=== PATIENT | male | born 1970 | race Caucasian/White ===

== ENCOUNTER 2020-07-15 17:46 | Observation (INO) | payer OTHER ==
[~2020-07-15 17:46] MED LIST: Iopamidol-370 76% 500 ML 1 ML ONE
[2020-07-15] MEDS ORDERED: Morphine 4 MG/ML VIAL ONE (18:00)
[2020-07-15] MEDS ORDERED: Ketorolac Tromethamine 30 MG/ML VIAL ONE (18:00)
[2020-07-15 18:12] LABS: #Basophils 0.1 thou/uL (0.0-0.2); #Eosinphils 0.2 thou/uL (0.0-0.7); #Lymphocytes 1.7 thou/uL (1.20-3.40); #Monocytes 1.1 thou/uL (0.11-0.59); #Neutrophils 10.3 thou/uL (1.40-6.50); %Basophils 0.5 % (0.0-1.0); %Eosinophils 1.7 % (0.0-10.0); %Lymphocytes 12.5 % (21.0-51.0); %Monocytes 8.3 % (0.0-10.0); %Neutrophils 77.1 % (42.0-75.0); Hemoglobin 15.1 g/dL (14.0-18.0); Mean Corpuscular HGB CONC 32.2 g/dL (32.0-36.0); Mean Corpuscular Hemoglobin 25.9 pg (27.0-31.0); Mean Corpuscular Volume 80.5 fL (78.0-98.0); Mean Platelet Volume 8.5 fL (7.4-10.4); Platelet Count 298 thou/uL (130-400); RBC Distribution Width 14.6 % (11.5-14.5); Red Blood Cell (RBC) Count 5.85 mill/uL (4.70-6.10); White Blood Cell (WBC) Count 13.3 thou/uL (4.8-10.8)
--- NOTE | 2020-07-15 18:43 | CT ---
CT ABDOMEN WITH CONTRAST CT PELVIS WITH CONTRAST: DATE: 07/15/2020 HISTORY: 50-year-old male with right upper quadrant and right lower quadrant abdominal pain with nausea and vo miting. COMPARISON: None TECHNIQUE: IV injection of iodinated contrast media: administered. Oral contrast media:Not administered FINDINGS: In the central portion of the abdominal cavity, anterior to the abdominal aorta and inferior to the t hird stage of the duodenum, there is a region of fat stranding. There are scattered slightly prominent nearby retroperitoneal and mesenteric lymph nodes. The fat stranding slightly involves the region of the uncinate process and head of the pancreas. Appendix: Normal Gallbladder: No excessive distention, mural thickening, or pericholecystic edema. Liver: 2 cm cyst left lobe hepatic segment IVb. Rest of liver is normal. Abdominal aorta, kidneys, adrenals, spleen, and urinary bladder, are normal. There is a broad platelike region of fat stranding along the anterior inferior portion of the periton eal cavity, which is located between the anterior surface of the urinary bladder and the posterior aspect of the rectus abdominis musculature, right greater than left, extending into the right inguina l canal. Uncertain whether this represents edema or postsurgical scar tissue (if the patient has had surgery in this location). Large intestine: Descending and sigmoid colonic diverticulosis without diverticulitis. Small bowel: No dilation. No ascites or pneumoperitoneum. IMPRESSION: 1) fat stranding consistent with edema in the central abdomen at retroperitoneal/mesenteric junction. Origin of this edema is uncertain, but possibilities include acute pancreatitis (recommend correlation with serum lipase and amylase), mesenteric panniculitis, and trauma. 2) a different type of broad band of fat stranding in the lower portion of the peritoneal cavity. Pos sibilities include edema of unknown origin versus postsurgical scar tissue versus posttraumatic hemorrhage. 3) normal appendix. No evidence of acute cholecystitis.
[2020-07-15 18:47] LABS: Bilirubin Negative (Negative); Blood, Urine Negative (Negative); Clarity Clear (Clear); Glucose, Urine (Dipstick) Normal (Negative); Ketone, Urine Negative (Negative); Leukocyte Negative Leu/uL (Negative); Nitrite Negative (Negative); Protein, Urine (Dipstick) Negative (Neg-Trace); Specific Gravity, Urine 1.016 (1.002-1.036); Urobilinogen Normal mg/dL (Less than 2)
[2020-07-15 18:57] LABS: ALT (SGPT) 52 U/L (8-55); AST (SGOT) 32 U/L (5-34); Albumin 4.2 g/dL (3.5-5.0); Alkaline Phosphatase 96 U/L (40-110); Anion Gap 16 mmol/L (10-20); BUN (Urea Nitrogen) 13 mg/dL (8.4-25.7); Bilirubin, Total 0.7 mg/dL (0.2-1.2); Calc. Creatinine Clearance 0 mL/min (70-130); Calcium 9.1 mg/dL (7.8-10.44); Carbon Dioxide 25 mmol/L (22-29); Chloride 97 mmol/L (98-107); Estimated GFR-MDRD 65; Globulin 2.4 g/dL (2.4-3.5); Glucose 98 mg/dL (70-105); Lipase 168 U/L (8-78); Potassium 3.9 mmol/L (3.5-5.1); Protein, Total 6.6 g/dL (6.0-8.3); Sodium 134 mmol/L (136-145)
--- NOTE | 2020-07-15 20:15 | ULT ---
ULTRASOUND ABDOMEN LIMITED: (RIGHT UPPER QUADRANT) DATE: 07/15/2020 HISTORY: 50-year-old male with abdominal pain FINDINGS: Gallbladder: Normal wall thickness. No gallstones or sludge identified. No pericholecystic fluid. Liver: Normal parenchymal echogenicity. 2 cm septated cyst in left lobe. Right kidney: No hydronephrosis. Pancreas: Nonspecific sonographic appearance (ultrasound is relatively insensitive for the detection of pancreatic pathology compared to CT and MRI.). Common duct caliber: 4 mm. IMPRESSION: 1) hepatic cyst 2) otherwise negative
[2020-07-15 20:49] LABS: Cardiac Risk 5.8 (Less than 4.5)
[2020-07-15] MEDS ORDERED: Ondansetron ODT 4 MG TAB SL PRN (21:33)
[2020-07-15] MEDS ORDERED: Ondansetron PF 4 MG/2 ML Vial IVP PRN (21:33)
[2020-07-15] MEDS ORDERED: Morphine 2 MG/ML VIAL SLOW IVP PRN ×2 (21:33→23:26)
[2020-07-15 21:55] VITALS: BMI 31.8
[2020-07-15] MEDS: Lactated Ringer's 1,000 ML IV SCH (22:28)
[2020-07-15] MEDS ORDERED: Morphine 4 MG/ML VIAL SLOW IVP PRN (22:33)
[2020-07-15] MEDS ORDERED: Labetalol HCl 100 MG/20 ML VIAL SLOW IVP PRN (23:07)
--- NOTE | 2020-07-15 23:09 | PDOC.FPRHP ---
- History of Present Illness Chief Complaint: abdominal pain History of Present Illness: 50 y/o M with PMHx diverticulitis, HTN, low testosterone, allergen induced asthma presents for abdominal pain, onset 1 day prior to admission. Initially described as epigastric but since coming to the ED it has mainly been RUQ pain. The pain does not radiate anywhere. Symptoms were not relieved with Tums. He is traveling to see his daughter and tried to "tough out" his symptoms, but they eventually became unbearable which brought him to the ED. Endorses some nausea and vomiting. Reports clear emesis, denies any hematemesis. He is complaining of decreased appetite. Has not been eating anything over the past 24 hours, but has been able to keep fluids down. He has not had a BM in the last 24 hours. Usually has 1-2 per day. He does not feel constipated, attributes symptoms to not eating as much. Reports that when symptoms began, he was eating steak for dinner. He also drank 4 beers. He reports that he usually only drinks 1-2 times per month now, and is usually around 4 beers when he does drink. He does endorse a history of heavy drinking of vodka, which he quit 1-2 months ago. Home medications include lisinopril-HCTZ, albuterol, and weekly testosterone injections. ED Course: 1L NS, toradol, morphine. Lipase elevated at 168 - Allergies/Adverse Reactions Allergies Allergy/AdvReac Type Severity Reaction Status Date / Time amoxicillin Allergy Verified 07/15/20 21:53 Penicillins Allergy Verified 07/15/20 21:53 - Home Medications Medication Instructions Recorded Confirmed Type Lisinopril/Hydrochlorothiazide 1 tab PO DAILY 07/16/20 07/16/20 History [Prinizide] Testosterone Cypionate 200 mg IM Q7D 07/16/20 07/16/20 History - History PMHx: diverticulitis, low testosterone, HTN, asthma PSHx: hernia surgery x 2 including umbilical hernia repair FHx: unknown Social: + etoh use, denies drug or alcohol use - Review of Systems General: denies: fever/chills, fatigue Respiratory: denies: cough, congestion, shortness of breath Cardiovascular: denies: chest pain, edema Gastrointestinal: reports: nausea, vomiting, constipation, abdominal pain. denies: diarrhea, GI bleeding Genitourinary: denies: dysuria Skin: reports: other (sunburn) Neurological: denies: syncope, weakness - Vital signs BP: 155/88 HR: 90 RR: 18 Tmax: 98.0F Pox: 97% on RA Wt: 97.7 kg - Physical Exam Constitutional: NAD, awake, alert and oriented, well developed HEENT: normocephalic and atraumatic, EOMI, conjunctiva clear, no scleral icterus , grossly normal vision, grossly normal hearing Neck: supple Heart: RRR, normal S1/S2, no murmurs/rubs/gallops, pulses present, no edema Lungs: CTAB, no respiratory distress, good air movement, no rales/rhonchi, no wheezing Abdomen: soft -Abdomen: moderate tenderness to RUQ, mild central abdominal tenderness just superior to umbilicus, no rebound tenderness, hypoactive bowel sounds Musculoskeletal: ROM grossly normal Neurological: no focal deficit Skin: other (sunburn to head, back, upper chest) Heme/Lymphatic: no unusual bruising or bleeding Psychiatric: normal mood and affect, good judgment and insight, intact recent and remote memory FMR H&P: Results - Labs Result Diagrams: 07/16/20 05:26 07/16/20 05:26 Lab results: WBC 13.3 thou/uL (4.8-10.8) H 07/15/20 18:04 Hgb 15.1 g/dL (14.0-18.0) 07/15/20 18:04 Hct 47.1 % (42.0-52.0) 07/15/20 18:04 MCV 80.5 fL (78.0-98.0) 07/15/20 18:04 Plt Count 298 thou/uL (130-400) 07/15/20 18:04 Neutrophils % 77.1 % (42.0-75.0) H 07/15/20 18:04 Sodium 134 mmol/L (136-145) L 07/15/20 18:04 Potassium 3.9 mmol/L (3.5-5.1) 07/15/20 18:04 Chloride 97 mmol/L (98-107) L 07/15/20 18:04 Carbon Dioxide 25 mmol/L (22-29) 07/15/20 18:04 BUN 13 mg/dL (8.4-25.7) 07/15/20 18:04 Creatinine 1.17 mg/dL (0.7-1.3) 07/15/20 18:04 Glucose 98 mg/dL (70-105) 07/15/20 18:04 Lactic Acid 1.3 mmol/L (0.5-2.2) 07/15/20 20:16 Calcium 9.1 mg/dL (7.8-10.44) 07/15/20 18:04 Total Bilirubin 0.7 mg/dL (0.2-1.2) 07/15/20 18:04 AST 32 U/L (5-34) 07/15/20 18:04 ALT 52 U/L (8-55) 07/15/20 18:04 Alkaline Phosphatase 96 U/L (40-110) 07/15/20 18:04 Serum Total Protein 6.6 g/dL (6.0-8.3) 07/15/20 18:04 Albumin 4.2 g/dL (3.5-5.0) 07/15/20 18:04 Lipase 168 U/L (8-78) H 07/15/20 18:04 Urine Ketones Negative mg/dL (Negative) 07/15/20 18:24 Urine Blood Negative (Negative) 07/15/20 18:24 Urine Nitrite Negative (Negative) 07/15/20 18:24 Ur Leukocyte Esterase Negative Dinorah/uL (Negative) 07/15/20 18:24 - EKG Interpretation EKG: NSR, borderline QTc FMR H&P: A/P - Plan Acute pancreatitis Symptoms due to early pancreatitis vs mesenteric panniculitis vs other pathology. Epigastric and RUQ pain not classic for pancreatitis, lipase elevated at 168 but is not 3x upper limit, CT abd/pelvis with fat stranding suggestive of pancreatitis, although could be due to mesenteric panniculitis or trauma. Known risk factors for pancreatitis include ETOH use, thiazide diuretic use. Separate, additional non-specific stranding in lower abdomen. Monitor for clinical symptoms in lower abdomen. - will treat as pancreatitis with NPO and IVF, pain control with morphine and toradol - continue to monitor clinical symptoms as mesenteric panniculitis can lead to SBO - will hold lisinopril-HCTZ at this time - f/u lipid panel - RUQ US without GB pathology, revealing 2 cm septated cyst on L liver lobe - consider hepatitis panel - monitor LFTs on CMP, leukocytosis on CBC HTN Controlled. - will hold lisinopril-HCTZ due to thiazide as possible precipitating factor for pancreatitis. - continue to monitor - PRN labetalol for SBP >180 Hypogonadism aware on weekly testosterone injections outpatient Asthma aware - albuterol prn FMR H&P: Upper Level - Pertinent history 50 yo M with HTN here for acute pancreatitis. N/V and abd pain started yesterday after eating steak and drinking beer. Describes in RUQ area, sharp with no radiation. First time episode. Has former hx of alcohol abuse. Used to drink vodka 3x week but quit 3 weeks ago. Yesterday had 4 beers for labor day. Denies hx of RUQ postprandial pain or IV drug use. Still has GB and appendix. Takes HCTZ for HTN. - Plan Date/Time: 07/15/20 1087 I, [Jocelynn Olsen], have evaluated this patient and agree with findings/plan as outlined by planner internship resident. Pertinent changes/additions are listed here. #Acute pancreatitis -Elevated serum lipase at 168. Not 3x ULN but could have caught it in early process of rising -CT abdomen showing fat stranding involving head of pancreas & uncinate region. Also showing fat stranding in mesenteric junction, consider mesenteric panniculitis. Consider further evaluation of latter diagnosis if not clinically improved in AM -FLP, RUQ U/S -Consider HCTZ as possible cause. Hold for now. -NPO, LR at 175cc/hr -Pain control with morphine 4mg, 2mg for breakthrough -BISAP: 0. --> <1% predicted mortality #Hx of EtOH abuse -ASE protocol -[employer] on cessation Admit: Medical/Inpt IVF: LR @ 175cc/hr Abx: None Diet: NPO GI ppx: IV protonix Discussed w/ Dr. Pettit See planner internship note for rest of details Addendum - Attending - Attending Attestation Date/Time: 07/15/20 8878 I personally evaluated the patient and discussed the management with Dr. Pena and Dr. Olsen I agree with the History, Examination, Assessment and Plan documented above with any addition or exceptions noted below. 50 yo male presents for evaluation of abdominal pain. CT concerning for pancreatitis vs messenteric panniculitis. Lipase elevated but not considerably. Will repeat in AM to see if increasing. NPO. Treat pain. Would repeat imaging to follow up on lymph nodes and if panniculitis progressing to sclerosis. Mike
[2020-07-15] MEDS ORDERED: Pantoprazole 40 MG VIAL IVP SCH (23:45)
[2020-07-16] MEDS ORDERED: Ketorolac Tromethamine 30 MG/ML VIAL IVP SCH (00:45)
[2020-07-16] MEDS: Morphine 4 MG/ML VIAL SLOW IVP PRN ×3 (04:33→22:02)
[2020-07-16] MEDS: Lactated Ringer's 1,000 ML IV SCH (04:33)
[2020-07-16] MEDS: Ketorolac Tromethamine 30 MG/ML VIAL IVP SCH ×3 (05:26→17:51)
[2020-07-16 05:46] LABS: #Eosinphils 0.4 thou/uL (0.0-0.7); #Lymphocytes 1.4 thou/uL (1.20-3.40); #Monocytes 1.4 thou/uL (0.11-0.59); %Basophils 0.1 % (0.0-1.0); %Eosinophils 3.2 % (0.0-10.0); %Lymphocytes 11.4 % (21.0-51.0); %Monocytes 11.4 % (0.0-10.0); %Neutrophils 73.9 % (42.0-75.0); Hemoglobin 14.8 g/dL (14.0-18.0); Mean Corpuscular HGB CONC 32.8 g/dL (32.0-36.0); Mean Corpuscular Hemoglobin 26.7 pg (27.0-31.0); Mean Corpuscular Volume 81.3 fL (78.0-98.0); Mean Platelet Volume 8.8 fL (7.4-10.4); Platelet Count 271 thou/uL (130-400); RBC Distribution Width 14.7 % (11.5-14.5); Red Blood Cell (RBC) Count 5.56 mill/uL (4.70-6.10); White Blood Cell (WBC) Count 12.2 thou/uL (4.8-10.8)
[2020-07-16 06:06] LABS: ALT (SGPT) 44 U/L (8-55); AST (SGOT) 27 U/L (5-34); Albumin 3.9 g/dL (3.5-5.0); Alkaline Phosphatase 85 U/L (40-110); Anion Gap 13 mmol/L (10-20); BUN (Urea Nitrogen) 12 mg/dL (8.4-25.7); Bilirubin, Total 0.9 mg/dL (0.2-1.2); Calc. Creatinine Clearance 91 mL/min (70-130); Carbon Dioxide 25 mmol/L (22-29); Chloride 101 mmol/L (98-107); Estimated GFR-MDRD 57; Globulin 2.7 g/dL (2.4-3.5); Glucose 114 mg/dL (70-105); Potassium 4.3 mmol/L (3.5-5.1); Protein, Total 6.6 g/dL (6.0-8.3); Sodium 135 mmol/L (136-145)
--- NOTE | 2020-07-16 07:25 | PDOC.FM ---
- Subjective Subjective: No acute events overnight. Continues to deal with intermittent RUQ abdominal pain improved with pain rx. No n/v, however, remains NPO at this time. Again confirmed that he has cut back considerably on his alcohol intake over last several weeks. - Objective Vital Signs & Weight: Vital Signs (12 hours) Temp Pulse Resp BP BP Pulse Ox 07/16/20 07:13 98.2 F 102 H 20 130/86 95 07/16/20 05:20 98.2 F 112 H 18 136/88 97 07/16/20 00:00 97.7 F 114 H 18 159/80 H 97 07/15/20 21:30 98 F 90 18 155/88 H 155/88 H 97 Weight Weight 97.778 kg I&O: 07/15/20 07/16/20 07/17/20 06:59 06:59 06:59 Intake Total 3450 Output Total 200 Balance 3250 Result Diagrams: 07/16/20 05:26 07/16/20 05:26 Phys Exam - Physical Examination Constitutional: NAD HEENT: moist MMs No respiratory distress Cardiovascular: RRR Gastrointestinal: soft, no distention, positive bowel sounds very minimal RUQ and mid epigastric tenderness with deep palpation Musculoskeletal: no edema, pulses present Neurological: moves all 4 limbs Psychiatric: normal affect, A&O x 3 Dx/Plan - Plan Plan: Acute pancreatitis -Elevated serum lipase at 168, could have caught while rising, will trend and compare to clinical presentation -CT abdomen showing fat stranding involving head of pancreas & uncinate region - Also showing fat stranding in mesenteric junction, consider mesenteric panniculitis - Will treat as pancreatitis for now, if not improving will address mesenteric panniculitis, likely would need steroids -RUQ U/S - septated left liver lobe cyst -Consider HCTZ as possible cause of pancreatitis, however unlikely. Hold for now. -NPO, LR at 175cc/hr -Pain control with morphine 6mg, 2mg for breakthrough -BISAP: 0 = <1% predicted mortality Hx of EtOH abuse -ASE protocol -[employer] on cessation Admit: Medical/Inpt IVF: LR @ 175cc/hr Abx: None Diet: NPO GI ppx: IV protonix Plan: Will treat as pancreatitis and watch clinical course. If no improvement will need to consider likelihood of mesenteric panniculitis. Addendum - Attending - Attending Attestation Date/Time: 07/16/20 1420 I personally evaluated the patient and discussed the management with Dr. Hayes. I agree with the History, Examination, Assessment and Plan documented above with any addition or exceptions noted below.
[2020-07-16] MEDS: Pantoprazole 40 MG VIAL IVP SCH (08:41)
[2020-07-16] MEDS: Lisinopril 10 MG TAB PO SCH (08:41)
[2020-07-16 13:04] LABS: SARS-CoV-2 MS2 Positive; SARS-CoV-2 N Gene Negative; SARS-CoV-2 S Gene Negative; SARS-CoV-2 by NAA Not Detected (NotDetected); SARS-CoV-2 orf1ab Negative
[2020-07-17] MEDS: Ketorolac Tromethamine 30 MG/ML VIAL IVP SCH ×5 (00:19→20:17)
[2020-07-17] MEDS: Morphine 4 MG/ML VIAL SLOW IVP PRN (04:02)
--- NOTE | 2020-07-17 07:11 | PDOC.FM ---
- Subjective Subjective: Pt feeling better this morning. Seen in the room ambulating talking to via phone. States he was trying to avoid morphine overnight due to side affects he doesn't prefer but needed it overnight due to an instance of increased pain. Feels his pain is better this morning. Denies any N/V/D. Has not had BM in a few days. - Objective Vital Signs & Weight: Vital Signs (12 hours) Temp Pulse Resp BP BP Pulse Ox 07/17/20 07:07 98.1 F 81 18 135/82 93 L 07/16/20 21:11 98.1 F 116 H 17 129/84 95 07/16/20 19:31 117/75 Weight Weight 97.778 kg I&O: 07/16/20 07/17/20 07/18/20 06:59 06:59 06:59 Intake Total 3450 Output Total 200 Balance 3250 Result Diagrams: 07/17/20 08:50 07/17/20 08:50 Phys Exam - Physical Examination Constitutional: NAD HEENT: moist MMs, sclera anicteric Respiratory: no wheezing, no rales, no rhonchi, clear to auscultation bilateral Cardiovascular: RRR, no significant murmur Gastrointestinal: soft, no distention, positive bowel sounds Minimal RUQ tenderness Musculoskeletal: no edema, pulses present Neurological: moves all 4 limbs Psychiatric: normal affect, A&O x 3 Skin: cap refill <2 seconds Dx/Plan - Plan Plan: Acute pancreatitis - improving - Pain improved this morning - Will adjust pain regimen to reduce use of morphine - Lipase down trending - Will initiate clear diet and AAT Hx of EtOH abuse -ASE protocol -no signs of withdrawal Admit: Medical/Inpt IVF: LR @ 70 Diet: CL GI ppx: IV protonix Plan: Improving on treatment for pancreatitis. Will continue to adjust pain regimen. Will start diet and monitor response. Possible DC later today. Addendum - Attending - Attending Attestation Date/Time: 07/17/20 1640 I personally evaluated the patient and discussed the management with Dr. Hayes. I agree with the History, Examination, Assessment and Plan documented above with any addition or exceptions noted below. Possible d/c this evening vs tomorrow.
[2020-07-17] MEDS: Pantoprazole 40 MG VIAL IVP SCH (09:01)
[2020-07-17] MEDS: Lisinopril 10 MG TAB PO SCH ×2 (09:01→12:28)
[2020-07-17 09:16] LABS: #Basophils 0.1 thou/uL (0.0-0.2); #Eosinphils 0.4 thou/uL (0.0-0.7); #Lymphocytes 1.7 thou/uL (1.20-3.40); #Monocytes 1.3 thou/uL (0.11-0.59); %Basophils 0.6 % (0.0-1.0); %Eosinophils 3.2 % (0.0-10.0); %Lymphocytes 13.4 % (21.0-51.0); %Monocytes 10.6 % (0.0-10.0); %Neutrophils 72.2 % (42.0-75.0); Hemoglobin 14.5 g/dL (14.0-18.0); Mean Corpuscular HGB CONC 32.7 g/dL (32.0-36.0); Mean Corpuscular Hemoglobin 26.7 pg (27.0-31.0); Mean Corpuscular Volume 81.7 fL (78.0-98.0); Mean Platelet Volume 8.9 fL (7.4-10.4); Platelet Count 287 thou/uL (130-400); RBC Distribution Width 15.1 % (11.5-14.5); Red Blood Cell (RBC) Count 5.41 mill/uL (4.70-6.10); White Blood Cell (WBC) Count 12.5 thou/uL (4.8-10.8)
[2020-07-17 09:27] LABS: ALT (SGPT) 35 U/L (8-55); AST (SGOT) 22 U/L (5-34); Alkaline Phosphatase 78 U/L (40-110); Anion Gap 14 mmol/L (10-20); BUN (Urea Nitrogen) 25 mg/dL (8.4-25.7); Bilirubin, Total 1.3 mg/dL (0.2-1.2); Calc. Creatinine Clearance 88 mL/min (70-130); Calcium 9.6 mg/dL (7.8-10.44); Carbon Dioxide 25 mmol/L (22-29); Chloride 102 mmol/L (98-107); Estimated GFR-MDRD 55; Globulin 3.1 g/dL (2.4-3.5); Glucose 103 mg/dL (70-105); Lipase 44 U/L (8-78); Protein, Total 7.1 g/dL (6.0-8.3); Sodium 137 mmol/L (136-145)
[2020-07-17] MEDS ORDERED: Morphine 2 MG/ML VIAL SLOW IVP PRN ×2 (10:30)
[2020-07-17] MEDS: Lactated Ringer's 1,000 ML IV SCH ×2 (11:18→18:09)
[2020-07-17] MEDS: Acetaminophen 500 MG TAB PO PRN ×2 (15:21→22:07)
[2020-07-18] MEDS: Ketorolac Tromethamine 30 MG/ML VIAL IVP SCH ×2 (00:54→05:36)
[2020-07-18] MEDS: Lactated Ringer's 1,000 ML IV SCH (00:55)
[2020-07-18 05:46] LABS: #Basophils 0.1 thou/uL (0.0-0.2); #Eosinphils 0.6 thou/uL (0.0-0.7); #Lymphocytes 1.4 thou/uL (1.20-3.40); #Monocytes 0.9 thou/uL (0.11-0.59); %Basophils 0.7 % (0.0-1.0); %Eosinophils 6.4 % (0.0-10.0); %Lymphocytes 14.2 % (21.0-51.0); %Monocytes 8.6 % (0.0-10.0); %Neutrophils 70.2 % (42.0-75.0); Hemoglobin 13.3 g/dL (14.0-18.0); Mean Corpuscular HGB CONC 32.1 g/dL (32.0-36.0); Mean Corpuscular Hemoglobin 26.4 pg (27.0-31.0); Mean Corpuscular Volume 82.2 fL (78.0-98.0); Mean Platelet Volume 8.7 fL (7.4-10.4); Platelet Count 278 thou/uL (130-400); RBC Distribution Width 14.9 % (11.5-14.5); Red Blood Cell (RBC) Count 5.03 mill/uL (4.70-6.10)
[2020-07-18 06:11] LABS: Anion Gap 13 mmol/L (10-20); BUN (Urea Nitrogen) 22 mg/dL (8.4-25.7); Calc. Creatinine Clearance 98 mL/min (70-130); Carbon Dioxide 26 mmol/L (22-29); Chloride 101 mmol/L (98-107); Estimated GFR-MDRD 62; Glucose 96 mg/dL (70-105); Lipase 35 U/L (8-78); Potassium 4.1 mmol/L (3.5-5.1); Sodium 136 mmol/L (136-145)
--- NOTE | 2020-07-18 07:24 | PDOC.FM ---
- Subjective Subjective: Feeling much better this morning. Did not require morphine overnight. Tolerated CL diet without difficulties. Is okay with possible DC later today if he does well with lunch. - Objective Vital Signs & Weight: Vital Signs (12 hours) Temp Pulse Resp BP Pulse Ox 07/18/20 04:07 97.8 F 89 18 138/90 97 07/17/20 23:49 97.9 F 92 18 151/94 H 97 Weight Weight 97.778 kg I&O: 07/17/20 07/18/20 07/19/20 06:59 06:59 06:59 Intake Total 1889 Balance 1889 Result Diagrams: 07/18/20 05:26 07/18/20 05:26 Phys Exam - Physical Examination Constitutional: NAD HEENT: moist MMs, sclera anicteric Neck: full ROM Respiratory: no wheezing, clear to auscultation bilateral Cardiovascular: RRR, no significant murmur Gastrointestinal: soft, no distention, positive bowel sounds RUQ remains slightly tender to deep palpation Musculoskeletal: no edema, pulses present Neurological: moves all 4 limbs Psychiatric: normal affect, A&O x 3 Dx/Plan - Plan Plan: Acute pancreatitis - improving - No morphine required overnight - Lipase in the 30s this morning - Tolerating PO intake without difficulty - DC IVF Hx of EtOH abuse -ASE protocol -no signs of withdrawal Admit: Medical/Inpt IVF: None Diet: Reg GI ppx: IV protonix Plan: Doing much better. Tolerating PO. Pain well managed. Will switch to all oral rx and if pt does well with lunch will plan for DC later today. Addendum - Attending - Attending Attestation Date/Time: 07/18/20 1237 I personally evaluated the patient and discussed the management with Dr. Hayes. I agree with the History, Examination, Assessment and Plan documented above with any addition or exceptions noted below.
[2020-07-18] MEDS: Pantoprazole 40 MG VIAL IVP SCH (09:14)
[2020-07-18] MEDS: Acetaminophen 500 MG TAB PO PRN (09:14)
[2020-07-18] MEDS: Lisinopril 10 MG TAB PO SCH (09:14)
[2020-07-18] MEDS ORDERED: Ibuprofen 600 MG TAB PO SCH (12:00)
[2020-07-18 15:10] VITALS: BP 146/81; TEMP 97.8
--- NOTE | 2020-07-19 02:45 | DIS ---
DATE OF ADMISSION: 07/15/2020 DATE OF DISCHARGE: 07/18/2020 DISCHARGE ATTENDING: Octaviano Gregory MD. RESIDENT: Yazan Hayes DO. CONSULTS: None. PROCEDURE: None. IMAGING: Abdomen and pelvis CT on 07/15/2020, impression: Fat stranding, consistent with edema in central abdomen at retroperitoneal/mesenteric junction. Origin uncertain. Possibilities include acute pancreatitis versus mesenteric panniculitis versus trauma. Abdominal ultrasound 07/15/2020, impression: Hepatic cyst, otherwise negative. PRIMARY DIAGNOSIS: Acute pancreatitis, liver cyst. SECONDARY DIAGNOSIS: Hypertension. DISCHARGE MEDICATIONS: 1. Testosterone cypionate 200 mg IM q.7 days. 2. Lisinopril/hydrochlorothiazide 10 mg/12.5 mg one tab daily. 3. Acetaminophen 1000 mg p.o. q.6 hours p.r.n. 4. Ibuprofen 600 mg p.o. q.6 hours p.r.n.. HISTORY OF PRESENT ILLNESS AND HOSPITAL COURSE: A 50-year-old male presented to the emergency department complaining of epigastric and right upper quadrant pain. He stated that this started one day prior, but had worsened and was accompanied with some nausea and vomiting and decreased appetite, prompting him to seek evaluation. Workup in the ED was consistent with acute pancreatitis with a lipase of [address] abdomen findings discussed above. Patient was admitted to the hospital, made n.p.o. and started on aggressive IV fluid resuscitation. He was also started on pain medications that were continually titrated. The following day the patient was feeling better and stated that his pain was improved and he was no longer nauseous. Later that night, he was started on a clear liquid diet which he tolerated well. He did not require any opiates for pain that night and his pain was controlled with ibuprofen and Tylenol. The following day he tolerated a full regular diet without any complications and had continued management of his pain with conservative pain medications. The patient was instructed to continue a bland diet and continue aggressive oral fluid hydration. He is also recommended to follow up with his PCP for this hospitalization and for monitoring of his hepatic cyst. DISCHARGE INSTRUCTIONS: Location home. Diet regular. Activity as tolerated. FOLLOWUP: Follow up with PCP within 7 days. Job ID: [id number]
--- NOTE | 2020-07-19 16:36 | EKG ---
Test Reason : Blood Pressure : / mmHG Vent. Rate : 085 BPM Atrial Rate : 085 BPM P-R Int : 126 ms QRS Dur : 096 ms QT Int : 374 ms P-R-T Axes : 037 -08 -14 degrees QTc Int : 445 ms Normal sinus rhythm with sinus arrhythmia Normal ECG Confirmed by ZAFAR LUGO ([id number]), multimedia editor DELBERT KIMBROUGH ([id number]) on 07/19/2020 4:35:45 PM Referred By: Confirmed By:ZAFAR LUGO
== END 2020-07-18 15:33 | disposition home or self-care (01) ==
LOC: ERS 17:46 → T4-B 20:22 → INTOOBSV 20:22
PROVIDERS: ADMIT Student in an Organized Health Care Education/Training Program; ATTEND Student in an Organized Health Care Education/Training Program
DX: K85.90 Acute pancreatitis without necrosis or infection, unspecified (principal); K76.89 Other specified diseases of liver; I10 Essential (primary) hypertension; E29.1 Testicular hypofunction; J45.909 Unspecified asthma, uncomplicated; F10.11 Alcohol abuse, in remission; Z79.899 Other long term (current) drug therapy; Z88.0 Allergy status to penicillin; Z20.828 Contact with and (suspected) exposure to other viral communicable diseases
CPT/HCPCS: 36415; 74177; 76705; 80048; 80053; 80061; 81003; 83605; 83690; 84484; 85025; 87635; 93005; 96361; 96374; 96375; 96376; C9113; G0378; J1885; J2270; Q9967; U0003